=== PATIENT | male | born 1950 | race Caucasian/White ===

== ENCOUNTER 2016-10-20 07:53 | Inpatient (IN) | payer OTHER ==
[2016-10-06 10:56] VITALS: BMI 38.0
--- NOTE | 2016-10-06 11:28 | PAT Medication Instructions ---
Service Date October 06, 2016. Current Home Medication List Amitriptyline HCl (Amitriptyline HCl), 25 MG PO HS Atenolol (Tenormin), 100 MG PO QAM Benazepril (Lotensin), 20 MG PO QAM Celecoxib (Celebrex), 2 CAP PO QAM Hydrochlorothiazide (Microzide), 12.5 MG PO QAM Omeprazole (Prilosec), 20 MG PO QAM Simvastatin (Zocor), 10 MG PO QPM Tramadol (Ultram), 50 MG PO Q8H PRN for Pain Medication Instructions For Your Scheduled Surgery - Hold the following medications the morning of surgery: Hydrochlorothiazide (Microzide), 12.5 MG PO QAM Celecoxib (Celebrex), 2 CAP PO QAM (not told to stop by surgeon) Benazepril (Lotensin), 20 MG PO QAM - Take the following medications the morning of surgery with a sip of water: Tramadol (Ultram), 50 MG PO Q8H PRN for Pain (can take up to four hours prior to surgery if needed) Omeprazole (Prilosec), 20 MG PO QAM Atenolol (Tenormin), 100 MG PO QAM - Take the following medications as scheduled the night before surgery: Tramadol (Ultram), 50 MG PO Q8H PRN for Pain Simvastatin (Zocor), 10 MG PO QPM Amitriptyline HCl (Amitriptyline HCl), 25 MG PO HS If you have any questions please call us at [phone] or [phone] ( Denise) or [phone]
[2016-10-06 12:00] LABS: BASO % 0.2 %; BASO ABS # 0.02 K/uL (0-0.2); COMPLETE YES; EOS % 0.7 %; HEMATOCRIT 46.2 % (42-52); IG% 0.4 %; LYMPH % 15.4 %; LYMPH ABS # 1.26 K/uL (1.2-3.4); MEAN CORPUSCULAR HEMOGLOBIN 29.3 pg (25-34); MEAN CORPUSCULAR HGB CONC 33.3 g/dl (32-36); MEAN PLATELET VOLUME 9.6 fL (7.4-10.4); MONO % 7.8 %; NEUT % 75.5 %; PLATELET COUNT 257 K/uL (130-400); RED BLOOD COUNT 5.25 M/uL (4.7-6.1); WHITE BLOOD COUNT 8.18 K/uL (4.8-10.8)
[2016-10-06 12:07] LABS: PROTHROMBIN TIME (PATIENT) 10.4 SECONDS (9.0-12.0)
--- NOTE | 2016-10-06 12:46 | DIAGNOSTIC IMAGING REPORT ---
CHEST PREADMISSION(PA/LAT) CLINICAL HISTORY: PAT preoperative evaluation COMPARISON STUDY: 06/01/2013 FINDINGS: Mild emphysematous change. Mild basilar chronic fibrotic change. No acute infiltrate. IMPRESSION: Chronic change. No acute process. Electronically signed by: Bandar Scales M.D. 10/06/2016 12:44 PM Dictated Date/Time: 10/06/2016 12:44 PM
[2016-10-06 12:53] LABS: URINE APPEARANCE CLEAR (CLEAR); URINE BILIRUBIN NEG (NEG); URINE COLOR YELLOW; URINE NITRITE NEG (NEG); URINE SPECIFIC GRAVITY 1.016 (1.000-1.030); UROBILINOGEN NEG (NEG); ZZUR CULT IF INDIC CLEAN CATCH NO
[2016-10-06 12:54] LABS: MANUAL MICROSCOPIC REQUIRED? NO; REVIEW REQ? NO
[2016-10-06 13:28] LABS: BUN/CREATININE RATIO 14.1 (10-20); CALCIUM 9.5 mg/dl (8.5-10.1); CREATININE 1.2 mg/dl (0.60-1.40); POTASSIUM 4.6 mmol/L (3.5-5.1)
--- NOTE | 2016-10-19 10:47 | HISTORY & PHYSICAL EXAMINATION ---
DATE OF ADMISSION: 10/20/2016 CHIEF COMPLAINT: Right hip pain. HISTORY OF PRESENT ILLNESS: Mr. Petersen is a 65-year-old male with a 6-to 7-month history of right hip. He rates his pain an 8/10. He has pain with his daily activities. He has limited standing and walking tolerance. Pain is worse with weightbearing. He has failed conservative treatment including tramadol, Celebrex. He now ambulates with a cane. He is scheduled for right hip replacement. PAST MEDICAL HISTORY: Hypertension, hypercholesterolemia, acid reflux, osteoarthritis, and history of PE 45 years ago status post trauma. He denies heart disease or diabetes. PAST SURGICAL HISTORY: Bilateral knee replacement, hernia repair, bowel obstruction, ORIF left femur, ORIF left tibia. SOCIAL HISTORY: The patient drinks alcohol rarely. He denies tobacco use. He lives in a single story home. He is and retired. FAMILY HISTORY: Negative for DVT. MEDICATIONS: Amitriptyline 25 mg daily, atenolol 100 mg daily, benazepril 20 mg daily, hydrochlorothiazide 12.5 mg daily, tramadol 50 mg p.r.n., omeprazole 20 mg daily, simvastatin 10 mg daily, Celebrex 200 mg daily. ALLERGIES: None. REVIEW OF SYSTEMS: See HPI. Ten other systems reviewed, all negative. PHYSICAL EXAMINATION: VITAL SIGNS: Height 5 feet 11 inches, weight 271 pounds, BMI 38. GENERAL: This is a well-developed, well-nourished male who is alert and oriented x3. Mood and affect are appropriate. HEENT: Normocephalic, atraumatic. Mucous membranes are moist and intact. NECK: Supple without lymphadenopathy. HEART: Regular rate and rhythm without murmurs, rubs or gallops. LUNGS: Clear to auscultation without wheezes or rhonchi. ABDOMEN: Soft and nontender. Log roll of the hip reproduces pain in the groin. He is neurovascularly intact with +5/5 strength. He walks with an antalgic gait. X-RAY EXAMINATION: AP and lateral views show joint space narrowing and osteophyte formation. He has a defect of the femoral head. IMPRESSION: Degenerative joint disease, right hip. PLAN: The patient will be admitted for a right total hip arthroplasty. We will plan on aspirin for DVT prophylaxis. PCP is Dr. Shay Coughlin in [place], [place]. We will plan on aspirin for DVT prophylaxis. The patient would like home nursing agency upon discharge.
[~2016-10-20] VITALS: Ht 180.3 cm; Wt 123.0 kg
[2016-10-20] VITALS (9 sets, daily range): BP systolic 96–163; BP diastolic 58–87; PULSE 72–95; TEMP 36.7–37.1; O2SAT 94–97; Ht 180.3 cm; Wt 123.0 kg
[2016-10-20] MEDS: TRANEXAMIC ACID INJ 1,000 MG in SODIUM CHLORIDE 0.9% 100ML 100 ML IV SCH ×2 (06:30→09:07)
[~2016-10-20 07:53] MED LIST: ACETAMINOPHEN 500 MG TAB PO SCH; AMT25 PO; ATEN-175 PO; BENA20TA14 PO; BUPIVACAINE 0.5 % 5 MG/1 ML PF 10ML VIAL ONE; CEFAZOLIN 3000 MG/65 ML D5W 65 ML IV SCH; CLB100 PO; CeleBREX 200 MG CAP PO SCH; DEXAMETHASONE 4 MG TAB PO SCH; FAMOTIDINE 20 MG TAB PO SCH; FENTANYL CITRATE INJ 50 MCG/1 ML 2 ML VIAL ONE; GABAPENTIN 300 MG CAP PO SCH; GLYB3TAB3 PO; HYDR12.524 PO; LACTATED RINGER'S 1000ML 1,000 ML IV SCH; LACTATED RINGER'S 1000ML 500 ML IV ONE; LACTATED RINGER'S 1000ML IV SCH; METOCLOPRAMIDE HCL 10 MG TAB PO SCH; MIDAZOLAM HCL 1 MG/ML 2ML VIAL ONE; OXYCODONE HCL 10 MG TABCR (OXYCONTIN) PO SCH; PRLSR20 PO; ROPIVACAINE 5MG/ML 30 ML 150 MG, BUPIVACAINE/EPINEPHR 0.5% MPF 30 ML, KETOROLAC TROMETH... INFIL SCH; SIMV10TA2 PO; TRAM-10 PO; VANCOMYCIN INJ 400 MG in NSS 100ML IR SCH
--- NOTE | 2016-10-20 08:40 | History & Physical Bridge Note ---
H&P Re-Evaluation Bridge Note: I have examined the patient, reviewed the History & Physical and in the interval since the performance of the History & Physical I have noted the following changes of clinical significance: No changes noted
[2016-10-20] MEDS ORDERED: ORTHO JOINT ANESTHETIC ONE (09:08)
[2016-10-20] MEDS ORDERED: POVIDONE-IODINE OP SOLN 30 ML BTL ONE (09:09)
[2016-10-20] MEDS ORDERED: BACITRACIN 50000 UNIT VIAL ONE (09:09)
[2016-10-20] MEDS ORDERED: MINERAL OIL LIGHT 10 ML BTL ONE (09:55)
[2016-10-20] MEDS ORDERED: EpHEDrine SULFATE INJ 50 MG/ML AMP IV PRN (10:15)
[2016-10-20] MEDS ORDERED: KETOROLAC TROMETHAMINE 30 MG/ML VIAL IV. PRN (10:15)
[2016-10-20] MEDS ORDERED: PHENYLEPHRINE 100MCG/ML 5ML SYR IV PRN (10:15)
[2016-10-20] MEDS ORDERED: ATROPINE SULFATE 0.1 MG/ML 5ML SYR IV PRN (10:15)
[2016-10-20] MEDS ORDERED: HYDROmorphone INJ 2 MG/ML SYR/VIAL IV PRN (10:15)
[2016-10-20] MEDS ORDERED: ONDANSETRON INJ 2 MG/ML 2 ML VIAL IV PRN ×2 (10:15→12:15)
[2016-10-20] MEDS ORDERED: MIDAZOLAM HCL 1 MG/ML 2ML VIAL ONE (10:26)
[2016-10-20] MEDS ORDERED: PROPOFOL IV EMULSION 10 MG/ML 20 ML VIAL IV ONE (10:28)
[2016-10-20] MEDS: POLYMYXIN B SULFATE 100,000 UNITS in NSS 100ML IR SCH ×2 (11:55→13:41)
--- NOTE | 2016-10-20 12:00 | [facility] Post Operative Brief Note ---
Immediate Operative Summary Operative Date October 20, 2016. Pre-Operative Diagnosis Degenerative joint disease, right hip Post-Operative Diagnosis Same as preop Procedure(s) Performed Right Total Hip Arthroplasty, uncemented, Direct Anterior Approach Surgeon Dr. Menendez Gift Shop Assistant Surgeon(s) Rogelio Herring PA-C Estimated Blood Loss 250mL Findings DJD Specimens A: right femoral head Complication(s) None Disposition Recovery Room / PACU
--- NOTE | 2016-10-20 12:12 | DIAGNOSTIC IMAGING REPORT ---
INTRAOPERATIVE RADIOGRAPH CLINICAL HISTORY: Right hip arthroplasty. Fluoroscopy time: 18 seconds. FINDINGS: A single spot fluoroscopic view of the right hip is presented. A bipolar right hip arthroplasty is in near-anatomic alignment. There is no evidence of acute fracture on this single fluoroscopic image. IMPRESSION: Intraoperative image from a right hip arthroplasty procedure as above. Electronically signed by: Chandler Banks M.D. 10/20/2016 12:10 PM Dictated Date/Time: 10/20/2016 12:10 PM
[2016-10-20] MEDS ORDERED: ZOLPIDEM TARTRATE 5 MG TAB PO PRN (12:15)
[2016-10-20] MEDS ORDERED: BISACODYL 10 MG SUPP PR PRN (12:15)
[2016-10-20] MEDS ORDERED: MAGNESIUM HYDROXIDE SUSP 30 ML UDC PO PRN (12:15)
[2016-10-20] MEDS ORDERED: MoRPHine SULFATE 4 MG/ML 1 ML CARP\\VIAL IV PRN (12:15)
[2016-10-20] MEDS ORDERED: SOD PHOSPHATE/SOD BIPHOSPHATE ENEMA 132 ML BTL PR PRN (12:15)
[2016-10-20] MEDS ORDERED: METOCLOPRAMIDE HCL INJ 5 MG/ML 2 ML VIAL IV PRN (12:15)
[2016-10-20] MEDS ORDERED: DiphenhydrAMINE HCL 50 MG/ML VIAL IV PRN (12:15)
[2016-10-20] MEDS ORDERED: ALUMINUM/MAGNESIUM/SIMETH (MAALOX MAX) 30 ML UDC PO PRN (12:15)
[2016-10-20] MEDS ORDERED: TRAMADOL HCL 50 MG TAB PO PRN (12:15)
--- NOTE | 2016-10-20 13:09 | Anesthesiology Progress Note ---
Anesthesia Post Op Note Date & Time October 20, 2016 at 13:09 Vital Signs Pain Intensity: 0 Vital Signs Past 12 Hours Date Time Temp Pulse Resp B/P Pulse Ox O2 Delivery O2 Flow Rate FiO2 10/20/16 13:00 36.6 71 20 108/63 96 Nasal Cannula 2 10/20/16 12:50 72 20 108/67 98 Nasal Cannula 2 10/20/16 12:40 69 20 105/60 100 Mask 10 10/20/16 12:30 69 20 115/64 100 Mask 10 10/20/16 12:23 36.2 72 20 115/71 100 Mask 10 10/20/16 08:15 36.9 94 20 163/83 96 Room Air Notes Mental Status: alert / awake / arousable, participated in evaluation Pt Amnestic to Procedure: Yes Nausea / Vomiting: adequately controlled Pain: adequately controlled Airway Patency, RR, SpO2: stable & adequate BP & HR: stable & adequate Hydration State: stable & adequate Anesthetic Complications: no major complications apparent
--- NOTE | 2016-10-20 13:15 | DIAGNOSTIC IMAGING REPORT ---
SINGLE VIEW PELVIS; SINGLE VIEW RIGHT HIP CLINICAL HISTORY: Postoperative examination. FINDINGS: An AP portable view of the hips and pelvis with a crosstable lateral portable view of the right hip are obtained. A bipolar right hip arthroplasty is in near-anatomic alignment. A single cortical lag screw transfixes the acetabular cup. No acute fracture is identified. There are expected postoperative changes overlying the right hip including subcutaneous gas, a surgical drain, and soft tissue swelling. Phleboliths are noted in the pelvis. Chronic posttraumatic deformity and postoperative change is noted in the left femur. IMPRESSION: Expected postoperative findings status post right hip arthroplasty. No acute fracture is seen. Electronically signed by: Chandler Banks M.D. 10/20/2016 1:13 PM Dictated Date/Time: 10/20/2016 1:12 PM
[2016-10-20] MEDS ORDERED: PHARMACY GLYCEMIC MGMT CONSULT PRN (13:27)
[2016-10-20] MEDS ORDERED: NURSING VERBAL MED ORDER ONE ×2 (13:45→21:45)
[2016-10-20] MEDS: SODIUM CHLORIDE 0.9% 1000ML 1,000 ML IV SCH ×2 (14:10→22:11)
[2016-10-20] MEDS ORDERED: DEXTROSE 50% 50 ML SYR IV PRN (14:15)
[2016-10-20] MEDS ORDERED: GLUCOSE 40% GEL 15 GM TUBE PO PRN (14:15)
[2016-10-20] MEDS ORDERED: GLUCAGON FOR INJ 1 MG VIAL SQ PRN (14:15)
[2016-10-20] MEDS ORDERED: GLUCOSE 10 TABS/TUBE PO PRN (14:15)
--- NOTE | 2016-10-20 14:28 | Pharmacy Progress Note ---
Glycemic Control Intl Consult Date of Service October 20, 2016. Scope Glycemic Pharmacist consulted by Dr Menendez on 10/20/16 for glycemic control and to write orders per [facility] inpatient glycemic control protocol Objective Weight (Kilograms): 123.20 Accuchecks BSG (last 24hrs): Test 10/20/16 08:12 10/20/16 13:42 Bedside Glucose 144 mg/dl (70-99) 139 mg/dl (70-99) Recent Pertinent Medications Outpatient Anti-diabetic Regimen: * Glyburide 3 mg PO daily - last taken on 10/19 * A1c = ? - ordered for tomorrow Risk Factors for Insulin Resistance: * Steroids: Ortho mix x 1 (contains dexamethasone 4 mg) * Recent Surgery: POD #0 right hip arthroplasty * Diet: T2DM Assessment & Plan ASSESSMENT: * ADA & AACE recommend a goal blood sugar range 140-180 mg/dl for the majority of critically ill & non-critically ill patients. However, more stringent targets may be selected in individual cases. Will utilize more stringent goal of 110-140 mg/dl based on patient age & comorbidities. Additionally, tighter glycemic control is warranted to facilitate wound/infection healing. * Pt is maintained on oral antidiabetic agents as an outpatient * Oral agents are not recommended for inpatient use d/t drug interactions, changing PO intake, and difficulty titrating for acute hyper/hypoglycemia. ADA recommends re-initiating outpatient oral agents 1-2 days prior to discharge if/ when appropriate if they were held on admission. * 65 yr old male s/p right hip arthroplasty with current BSG at goal. Patient did receive topical steroid preoperatively (via [employer]), which has the potential to elevate BSG. Unknown outpatient glycemic control - A1c ordered for 10/20. * Will utilize SQ basal bolus insulin regimen which is the recommended regimen for inpatient glycemic control. * Will initiate weight based insulin dosing for insulin emeli patient and titrate based on BSG trends. PLAN FOR INPATIENT GLYCEMIC CONTROL: * Holding outpatient oral diabetes medications * Basal insulin with LANTUS * 10/20 pm dose will be based on BSG * none for BSG 139 mg/dL or less * 12 units for BSG 140-180 mg/dL * 20 units for BSG greater than 180 mg/dL * Correctional Insulin with NOVOLOG per scale ACHS * Goal Range: Low 110 mg/dL - High 140 mg/dL * Correction Factor: 20 mg/dL/unit * Nutritional / Prandial insulin per carb ratio of 1 unit per 6 grams CHO consumed * Please note that the plan above was derived based on current level of insulin resistance and hospital stress. These recommendations are appropriate for inpatient admission only. Plan of care upon discharge will need to be reassessed to avoid potential outpatient hypo/hyperglycemia. Thank you.
[2016-10-20] MEDS: OXYCODONE HCL IR 5 MG TAB (IMMEDIATE RELEASE) PO PRN ×2 (16:09→21:15)
[2016-10-20] MEDS: ACETAMINOPHEN 500 MG TAB PO SCH ×2 (17:01→22:08)
[2016-10-20] MEDS: CEFAZOLIN IV 2,000 MG in DEXTROSE 5% 50ML 50 ML IV SCH (18:09)
[2016-10-20] MEDS: KETOROLAC TROMETHAMINE 30 MG/ML VIAL IV. SCH ×2 (18:12→23:53)
[2016-10-20] MEDS: INSULIN ASPART 100 UNITS/ML 3 ML PEN SC SCH ×2 (18:21→21:23)
[2016-10-20] MEDS ORDERED: TRANEXAMIC ACID INJ 1,000 MG in SODIUM CHLORIDE 0.9% 100ML 100 ML IV SCH (18:30)
--- NOTE | 2016-10-20 20:30 | OPERATIVE REPORT ---
DATE OF OPERATION: 10/20/2016 PREOPERATIVE DIAGNOSES: 1. Degenerative arthritis, right hip. 2. Obesity. PROCEDURE: Right total hip replacement. SURGEON: Martin Menendez MD ABRASIVE GRINDER: MING Castellano ANESTHESIA: Spinal. BLOOD LOSS: 250 mL. REPLACEMENT FLUIDS: 2200 mL crystalloid. DRAINS: Hemovacs x1. CULTURES: None. COMPLICATIONS: None. COMPONENTS USED: [employer] Polar hip system: Acetabulum size 58, femur size 4 high offset, femoral head 0, neck length 36 mm. NOTE: Dee Herring was present and assisted throughout due to the complicated nature of this case. She helped with preparation and set up, first assisted throughout and personally closed the fascial, subcutaneous and skin layers and applied the postoperative dressing. DESCRIPTION OF PROCEDURE: Following satisfactory spinal, the patient was supine. The right leg was placed in the traction device and the left leg in the well leg de jesus, right leg was prepared with ChloraPrep and draped sterilely. Following a surgical time-out, an anterior approach to the hip was performed in the interval between the sartorius and tensor muscles. The circumflex femoral vessels were identified and ligated. Exposure was difficult as the patient had a large tensor muscle and an extremely large body habitus. An anterior capsulotomy was performed exposing an arthritic femoral neck and head. Femoral neck and head were removed with some difficulty as the patient had a large inferior osteophyte in addition. The acetabular self-retraining retractor was placed. Acetabular exposure was difficult. Reaming was completed under fluoroscopic guidance and after removal of a large inferior osteophyte, a 58 shell was impacted into an anatomic position and secured with a dome screw. Local anesthetic was placed and after irrigation, the polyethylene liner was placed. The femur was placed into position of external rotation, extension and adduction. The femoral canal was difficult to prepare it again because of the large body habitus and extremely thick musculature. This required additional time and effort. Eventually, the hip was prepared up to the size 4. A trial reduction with a 0 neck length head using fluoroscopy showed roman catholic of leg lengths using anatomic landmarks. The hip was dislocated. The trial component was removed. The final implant was placed and the hip was reduced with fluoroscopy confirming the position. A Betadine soak was performed. After 3 minutes, the Betadine was irrigated. The capsule was closed with #1 Vicryl interrupted. A drain was placed. After irrigation, the fascia was closed with a running suture of #1 Vicryl. The subcutaneous tissues with #1 and 2-0 Vicryl and the skin with a running subcuticular stitch of 3-0 V-Loc. Dermabond and a dry dressing were applied. The patient was returned to his bed in stable condition. I attest to the content of the Intraoperative Record and any orders documented therein. Any exceptio ns are noted below.
[2016-10-20] MEDS ORDERED: AMITRIPTYLINE HCL 25 MG TAB PO SCH (21:00)
[2016-10-20] MEDS ORDERED: SENNA 8.6 MG TAB PO SCH (21:00)
[2016-10-20] MEDS ORDERED: SIMVASTATIN 10 MG TAB PO SCH (21:00)
[2016-10-20] MEDS ORDERED: INSULIN GLARGINE SOLOSTAR 100 UNITS/ML 3 ML PEN SC SCH (21:00)
[2016-10-20] MEDS: ASPIRIN 81 MG ECTAB PO SCH (21:16)
[2016-10-20] MEDS ORDERED: INSULIN GLARGINE SOLOSTAR 100 UNITS/ML 3 ML PEN SC ONE (22:00)
[2016-10-21] MEDS: CEFAZOLIN IV 2,000 MG in DEXTROSE 5% 50ML 50 ML IV SCH (01:43)
[2016-10-21 03:30] VITALS: BP 99/58; PULSE 80; TEMP 36.8; O2SAT 93
[2016-10-21] MEDS: ACETAMINOPHEN 500 MG TAB PO SCH ×2 (05:40→13:45)
[2016-10-21] MEDS: KETOROLAC TROMETHAMINE 30 MG/ML VIAL IV. SCH ×2 (05:41→12:22)
--- NOTE | 2016-10-21 07:56 | Anesthesiology Progress Note ---
Anesthesia Post Op Note Date & Time October 21, 2016 at 07:56 Vital Signs Pain Intensity: 2.0 Vital Signs Past 12 Hours Date Time Temp Pulse Resp B/P Pulse Ox O2 Delivery O2 Flow Rate FiO2 10/21/16 03:30 36.8 80 18 99/58 93 Room Air 10/20/16 23:50 Room Air 10/20/16 22:45 36.8 84 18 96/58 94 Room Air 10/20/16 20:20 37.0 95 18 122/71 94 Room Air Notes Mental Status: alert / awake / arousable, participated in evaluation Pt Amnestic to Procedure: Yes Nausea / Vomiting: adequately controlled Pain: adequately controlled Airway Patency, RR, SpO2: stable & adequate BP & HR: stable & adequate Hydration State: stable & adequate Anesthetic Complications: no major complications apparent
[2016-10-21] MEDS ORDERED: ASPEC81 PO (08:16)
[2016-10-21] MEDS ORDERED: ACET-1138 PO (08:16)
[2016-10-21] MEDS ORDERED: ONDA8TAB6 PO (08:16)
[2016-10-21] MEDS ORDERED: CLB100 PO (08:16)
[2016-10-21] MEDS ORDERED: SNK PO (08:16)
[2016-10-21] MEDS ORDERED: RXC5 PO (08:16)
--- NOTE | 2016-10-21 08:17 | Discharge Instructions ---
Discharge Instructions Date of Service October 21, 2016. Admission Reason for Admission: Right Degenerative Arthritis - Pelvis/Thigh Discharge Discharge Diagnosis / Problem: sp right total hip Discharge Goals Goal(s): Decrease discomfort, Improve function, Increase independence Activity Recommendations Activity Limitations: per Instructions/Follow-up section . Instructions / Follow-Up Instructions / Follow-Up ACTIVITY RECOMMENDATIONS: SELF CARE INSTRUCTIONS AFTER TOTAL HIP REPLACEMENT : Direct Anterior Approach Until the incision and soft tissues around your hip have healed, there is a possibility that the hip prosthesis could dislocate. A. Hip flexion ( Up & Down out of chair or steps ) may be difficult. This is normal. B. Numbness in front of the thigh is also normal for a few weeks. C. Use hand rails when walking on stairs. D. Wear low heeled shoes with non-slip soles. E. Be sure that your floors are free of things that could trip you - throw rugs , electrical cords, small objects. Avoid wet and waxed floors, especially with crutches and canes. F. Try to walk several times a day with rest periods between. G. Continue with all the exercises taught to you in the hospital. Again, make walking a part of your daily routine. SPECIAL CARE INSTRUCTIONS: VERY IMPORTANT TO READ AND REVIEW A. You may still be at risk for phlebitis and blood clots. 1. Wear surgical stockings (CLARISSE hose) for 2 weeks after surgery to improve circulation and reduce swelling. 2. Take Aspirin 81mg twice daily for 4 weeks or as directed by your doctor. This is your blood thinner. 3. High risk patients may be prescribed a stronger blood thinner if necessary. 4. If you are on Coumadin normally, your family doctor/heating equipment repairer should monitor your blood work. Expect a phone call the day of or the day after bloodwork is drawn to adjust your dosage. B. You must take antibiotics before having dental work, bladder, bowel and other surgery. Your doctor will provide you with a permanent card to carry describing precautions. C. Call [facility] if you have a fever, redness or swelling around the incision, cloudy drainage from incision, or sudden increase in pain in your hip, not relieved by your regular pain medication. D. Please call the office at if you have any concerns or questions about your operation or recovery. * YOU MAY SHOWER, NO TUB BATHS UNTIL CLEARED BY YOUR DOCTOR. - Keep an extra close eye on the top portion of your incision. Be sure to keep clean & dry. * WEAR CLARISSE HOSE 20 HOURS PER DAY FOR 2 WEEKS. * YOU MAY PROGRESS FROM A WALKER, TO A CANE, TO INDEPENDENT AT YOUR OWN PACE. * MOST PATIENTS WILL HAVE HOME NURSING FOR THERAPY. IF YOU DECIDE TO DO OUTPATIENT PHYSICAL THERAPY, PLEASE SCHEDULE THIS 3 TIMES PER WEEK. * DERMABOND Prineo- This is a mesh tape dressing that is covered with glue. It should remain in place until the incision is properly healed, usually 10-14 days. This dressing is designed to naturally slough off. You may trim the excess mesh tape as it peels off. Incision may be briefly wet in a shower. Dry immediately by blotting with a clean, dry towel. Do not bath or swim until instructed by your doctor. Do not scratch, rub, or pick at the dressing. Do not apply any topical ointments or lotions until dressing is completely removed and/or instructed by your doctor. There may be a small piece of suture material at one end of your incision. Do not pull or trim this. If it is bothersome or catching on clothing, you may cover it with a band-aid. FOLLOW UP VISIT: If appointment is not already scheduled: Please call [facility] to make a follow-up appointment for 2 weeks after your surgery at . Current Hospital Diet Patient's current hospital diet: Diabetes Type 2 Diet Discharge Diet Recommended Diet: Regular Diet Procedures Procedures Performed: Right Total Hip Arthroplasty, uncemented, Direct Anterior Approach Pending Studies Studies pending at discharge: no Laboratory Results Hemoglobin A1c Test 10/21/16 04:44 Range/Units Medical Emergencies . Who to Call and When: Medical Emergencies: If at any time you feel your situation is an emergency, please call 911 immediately. . Non-Emergent Contact Non-Emergency issues call your: Surgeon . "Provider Documentation" section prepared by Dee Herring. . VTE Core Measure Inpt VTE Proph given/why not?: Other Anticoagulation, T.E.D. Stockings, SCD's [place] Drug Monitoring Program Search Results: patient reviewed within database, no issues identified
[2016-10-21 08:29] VITALS: BP 122/69; PULSE 80; TEMP 36.8; O2SAT 95
[2016-10-21 08:44] LABS: COMPLETE YES; EOS % 0.1 %; HEMATOCRIT 36.7 % (42-52); IG% 0.3 %; LYMPH % 8.7 %; LYMPH ABS # 0.94 K/uL (1.2-3.4); MEAN CORPUSCULAR HEMOGLOBIN 29.4 pg (25-34); MEAN CORPUSCULAR HGB CONC 33.8 g/dl (32-36); MEAN PLATELET VOLUME 9.3 fL (7.4-10.4); MONO % 9.6 %; NEUT % 81.3 %; PLATELET COUNT 212 K/uL (130-400); RED BLOOD COUNT 4.22 M/uL (4.7-6.1); WHITE BLOOD COUNT 10.78 K/uL (4.8-10.8)
[2016-10-21] MEDS: SODIUM CHLORIDE 0.9% 1000ML 1,000 ML IV SCH (08:58)
--- NOTE | 2016-10-21 08:58 | DISCHARGE SUMMARY ---
DISCHARGE DIAGNOSIS: Degenerative joint disease, right hip. SECONDARY DIAGNOSIS: None. CONSULTS: None. COMPLICATIONS: None. PROCEDURE: The patient underwent a direct anterior right total hip arthroplasty with Dr. Menendez on 10/20/2016. BRIEF HISTORY OF PRESENT ILLNESS: Please see previously dictated history and physical. HOSPITAL SUMMARY: Vital signs were stable. He was afebrile. Dressing was clean, dry and intact. He was neurovascularly intact. Calves were soft and nontender. Hip was located. Hemovac drained 100 and 200 mL. Hemoglobin was still pending at this time. The patient began physical therapy per protocol. He tolerated this well and was discharged to home later that day in stable condition. For further review, please see the chart. Lab, x-ray data and discharge instructions as per chart.
[2016-10-21] MEDS ORDERED: ENALAPRIL MALEATE 10 MG TAB PO SCH (09:00)
[2016-10-21] MEDS ORDERED: MULTIVITAMIN TAB PO SCH (09:00)
[2016-10-21] MEDS ORDERED: PANTOprazole SOD 40 MG TAB PO SCH (09:00)
[2016-10-21] MEDS ORDERED: HYDROCHLOROTHIAZIDE 25 MG TAB PO SCH (09:00)
[2016-10-21 09:03] LABS: ESTIMATED AVERAGE GLUCOSE 137 mg/dl; HA1C FLAG Normal (Normal)
[2016-10-21 09:11] LABS: BUN/CREATININE RATIO 17.8 (10-20); CREATININE 1.1 mg/dl (0.60-1.40); POTASSIUM 3.9 mmol/L (3.5-5.1)
[2016-10-21 09:13] LABS: CALCIUM 8.1 mg/dl (8.5-10.1)
[2016-10-21] MEDS: ASPIRIN 81 MG ECTAB PO SCH (09:39)
[2016-10-21 09:41] VITALS: BP 126/68; PULSE 88
[2016-10-21] MEDS: INSULIN ASPART 100 UNITS/ML 3 ML PEN SC SCH ×2 (09:48→13:11)
[2016-10-21 11:21] VITALS: BP 116/64; PULSE 73; TEMP 36.8; O2SAT 96
[2016-10-21 12:51] VITALS: BP 116/64; PULSE 73; TEMP 36.8; O2SAT 96
[2016-10-22] MEDS ORDERED: CeleBREX 200 MG CAP PO SCH (21:00)
== END 2016-10-21 14:06 | disposition home health service (06) | DRG 470 ==
LOC: ENRESERVTM → ENRESERVDT → C.ACU 07:53 → C.MSW 08:47
PROVIDERS: ADMIT Orthopaedic Surgery; ATTEND Orthopaedic Surgery
PROC: 0SR904A Replacement of Right Hip Joint with Ceramic on Polyethylene Synthetic Substitute, Uncemented, Open Approach (ICD-10-PCS; principal; 2016-10-20 09:45)
DX: M16.11 Unilateral primary osteoarthritis, right hip (principal); I10 Essential (primary) hypertension; E78.00 Pure hypercholesterolemia, unspecified; K21.9 Gastro-esophageal reflux disease without esophagitis; E11.9 Type 2 diabetes mellitus without complications; E66.9 Obesity, unspecified; Z68.38 Body mass index [BMI] 38.0-38.9, adult; Z86.711 Personal history of pulmonary embolism; Z87.891 Personal history of nicotine dependence; Z96.653 Presence of artificial knee joint, bilateral; Z79.1 Long term (current) use of non-steroidal anti-inflammatories (NSAID); Z79.891 Long term (current) use of opiate analgesic; Z79.899 Other long term (current) drug therapy